=== PATIENT | male | born 1950 | race Caucasian/White ===

== ENCOUNTER 2016-04-18 12:59 | Emergency (ER) | payer MEDICARE, OTHER ==
[2016-04-18 13:38] VITALS: BP 157/54
[2016-04-18] MEDS ORDERED: DIPHTH,PERTUSS(ACELL),TET VAC 0.5 ML VIAL IM ONE ×2 (13:43→14:53)
--- NOTE | 2016-04-18 14:26 | ERNOTE ---
Upper Extremity HPI - General Extremities Pain Location: 2nd finger: left, 5th finger: left Time Seen by Provider: 04/18/16 14:00 Source: patient Exam Limitations: no limitations - Immun/Allergies/Home Medications Immunizations: IMMUNIZATION HX Immunizations Up to Date Yes Allergies/Adverse Reactions: Allergies Allergy/AdvReac Type Severity Reaction Status Date / Time poison lalitha extract Allergy Verified 04/18/16 13:38 [Poison Lalitha Extract] poison oak extract Allergy Verified 04/18/16 13:38 [Poison [place] Extract] poison sumac extract Allergy Verified 04/18/16 13:38 [Poison Sumac Extract] contrast dye AdvReac Mild Vomiting Uncoded 04/18/16 13:38 Home Medications: HOME MEDICATIONS Atorvastatin Calcium 40 mg PO HS 02/29/12 [Last Taken Unknown] Escitalopram Oxalate [Lexapro] 20 mg PO Q48H 02/29/12 [Last Taken Unknown] Flecainide Acetate 100 mg PO BID 02/29/12 [Last Taken Unknown] Timolol [Betimol] 1 drop EACHEYE DAILY 02/29/12 [Last Taken Unknown] Warfarin Sodium [Coumadin] 5 mg PO SUTUTHSA 02/29/12 [Last Taken 04/10/14 08:00] Losartan Potassium [Cozaar] 100 mg PO DAILY 05/14/13 [Last Taken Unknown] Warfarin Sodium [Coumadin] 7.5 mg PO MOWEFR 01/08/14 [Last Taken Unknown] Metoprolol Succinate [Toprol Xl] 50 mg PO BID 02/02/14 [Last Taken Unknown] Acetaminophen [Tylenol] 650 mg PO QID PRN #1 tablet 04/13/14 [Last Taken Unknown ] Diclofenac Sodium [Voltaren] 50 mg PO BID 08/22/14 [Last Taken Unknown] amLODIPine BESYLATE [Norvasc] 5 mg PO DAILY 09/05/14 [Last Taken Unknown] Cyanocobalamin [Vitamin B-12] 1,000 mcg PO DAILY 12/10/15 [Last Taken Unknown] Multivitamins [Multivitamin Fawn] 1 cap PO DAILY 12/10/15 [Last Taken Unknown] Omeprazole [Prilosec] 40 mg PO DAILY 12/10/15 [Last Taken Unknown] Amox Tr/Potassium Clavulanate [Augmentin 875-125 Tablet] 875 mg PO Q12H #20 tab 04/18/16 [Last Taken Unknown] Oxycodone HCl/Acetaminophen [Percocet 5-325 mg Tablet] 1 each PO Q4H PRN #30 tablet 04/18/16 [Last Taken Unknown] - History of Present Illness Narrative: Patient was working with a table saw and did not pay enough attention and injured his left 2nd and fifth finger tip Date (Duration): 04/18/16 Occurred: just prior to arrival Location of Incident: home Severity: moderate Method of Injury: Reports: other Loss of Consciousness: Reports: no loss of consciousness Associated Symptoms: Denies: tingling, weakness Other Injuries: Reports: none Review of Systems - Review of Systems Constitutional: Absent: recent illness, fever ENT: Absent: nose congestion, sore throat Respiratory: Absent: shortness of breath, cough Cardiology: Absent: chest pain Gastrointestinal/Abdominal: Absent: nausea, abdominal pain Musculoskeletal: Present: See HPI Skin: Present: See HPI Neurological: Absent: weakness, numbness - Patient's Past Medical History Patient History - Medical: Other Patient History - Cardiac/Respiratory: Atrial Fibrillation, Hypertension Patient History - Cancer: No Hx of Cancer Patient History - Surgical Procedures: No surgical history Patient History - Other: None - Social History Smoking Status: Never smoker Have you smoked in the past 12 months: No - Immunizations Immunizations Up to Date: No Physical Exam - Physical Exam General Appearance: Present: wd/wn, alert, no apparent distress Respiratory: Present: no respiratory distress Cardiovascular/Chest: Present: other - good cap refill Extremity Exam: Present: other - see procedure note, finger tip injuries of 2nd and fifth finger, 1cm laceration palmar surface on fourth finger over proximal phalanx Neurological Exam: Present: alert, oriented, normal mood/affect, no motor/ sensory deficits Skin Exam: Present: normal color, warm/dry ED Progress - Results and Orders Patient's Lab Results:: I have reviewed the patient's lab results. - Vital Signs Patient's Vital Signs:: I have reviewed the patient's vital signs. Vital Signs: Vital Signs 04/18/16 13:36 Temperature 36.5 C Pulse Rate 93 Respiratory 14 Rate Blood Pressure 157/54 O2 Sat by Pulse 91 Oximetry - X-Ray X-Ray #1 X-Ray: hand - comminuted and displaced fracture and laceration second distal phalanx, tuft fracture and laceration fifth distal phalanx Interpretation: Interp. by me - Progress/Reassessment Chief Complaint: Hand Injury/Pain Progress Note-Subjective: 04/18/16 14:[address] Begum (displaced fracture and laceration distal phalanx second finger with nail injury, open tuft fracture and nail injury fifth distal phalanx) instructed to dress fingertips, start patient on augmentin, he will repair wound in office tomorrow Procedures Left 2nd Digit Anesthesia: 1% Lidocaine, Digital Block Wound's Depth/Shape: into subcutaneous, into muscle, nail-avulsed, other - cut through fingertip, through bone and lower part of nail, still connected on radial side Wound Explored: no foreign body Wound Intervention: irrigated w/saline Distal NVT: neuro/vasc intact Wound Dressing: sterile dressing applied Left 5th Digit Anesthesia: 1% Lidocaine, Digital Block Wound's Depth/Shape: into subcutaneous, other - partial avulsion of distal finger tip Wound Explored: clean Wound Intervention: irrigated w/saline Distal NVT: neuro/vasc intact, no tendon injury Wound Dressing: sterile dressing applied Left 4th Digit Anesthesia: 1% Lidocaine, Local Wound's Depth/Shape: into subcutaneous Wound Explored: clean, to base, in bloodless field Wound Intervention: irrigated w/saline Distal NVT: neuro/vasc intact, no tendon injury Suture Size/Type: 4-0 Number of Sutures: 3 Layer Closure: Simple Wound Dressing: sterile dressing applied Departure Clinical Impression: Fracture of finger, distal, open Qualifiers: Encounter type: initial encounter Finger: index finger Fracture alignment: displaced Laterality: left Qualified Code(s): S62.631B - Displaced fracture of distal phalanx of left index finger, initial encounter for open fracture Fracture of finger, distal, open Qualifiers: Encounter type: initial encounter Finger: index finger Fracture alignment: displaced Laterality: left Qualified Code(s): S62.631B - Displaced fracture of distal phalanx of left index finger, initial encounter for open fracture Open fracture of tuft of distal phalanx of finger Qualifiers: Encounter type: initial encounter Qualified Code(s): S62.639B - Displaced fracture of distal phalanx of unspecified finger, initial encounter for open fracture Finger laceration Qualifiers: Encounter type: initial encounter Qualified Code(s): S61.219A - Laceration without foreign body of unspecified finger without damage to nail, initial encounter - Departure Disposition: Home self-care Condition: Good Instructions: Crush Injury of the Fingers or Toes Additional Instructions: call Dr Begum's office in the morning for an appointment time Dr Begum is planning on repairing your fingers tomorrow take your medication, antibiotics and pain medications as needed with a small amount of water, but do not eat or drink till you are seen by Dr Begum Referrals: Delta Ivy, PAC [[facility]] - Prescriptions: Amox Tr/Potassium Clavulanate [Augmentin 875-125 Tablet] 875 mg PO Q12H #20 tab Oxycodone HCl/Acetaminophen [Percocet 5-325 mg Tablet] 1 each PO Q4H PRN #30 tablet PRN Reason: Pain
[2016-04-18 14:40] LABS: Prothrombin Time (Patient) 32.7 Seconds (9.4-11.4)
[2016-04-18 14:43] LABS: INR 3.14 INR (0.90-1.10)
[2016-04-18] MEDS ORDERED: oxyCODONE HCL/ACETAMINOPHEN 1 TAB TABLET PO ONE (15:59)
[2016-04-18] MEDS ORDERED: AMOX TR/POTASSIUM CLAVULANATE 875 MG TABLET PO ONE (15:59)
[2016-04-18] MEDS ORDERED: AMOX TR/POTASSIUM CLAVULANATE 500 MG TABLET ONE (16:01)
[2016-04-18] MEDS ORDERED: oxyCODONE HCL/ACETAMINOPHEN 1 TAB TABLET ONE (16:01)
[2016-04-18] MEDS ORDERED: AMOX TR/POTASSIUM CLAVULANATE 875 MG TABLET ONE (16:02)
== END 2016-04-18 16:11 | disposition home or self-care (01) ==
LOC: ER 12:59
PROC: 0JQK0ZZ Repair Left Hand Subcutaneous Tissue and Fascia, Open Approach (ICD-10-PCS; principal; 2016-04-18)
DX: S62.631B Displaced fracture of distal phalanx of left index finger, initial encounter for open fracture (principal); S62.637B Displaced fracture of distal phalanx of left little finger, initial encounter for open fracture; S61.215A Laceration without foreign body of left ring finger without damage to nail, initial encounter; S61.317A Laceration without foreign body of left little finger with damage to nail, initial encounter; S61.211A Laceration without foreign body of left index finger without damage to nail, initial encounter; W27.0XXA Contact with workbench tool, initial encounter; Y92.009 Unspecified place in unspecified non-institutional (private) residence as the place of occurrence of the external cause; Z23 Encounter for immunization

== ENCOUNTER 2017-03-07 08:04 | Day surgery (SDC) | payer MEDICARE, OTHER ==
[~2017-03-07 08:04] MED LIST: RINGER'S SOLUTION,LACTATED 1,000 ML IV PRN
[2017-03-07 09:20] LABS: INR 1.17 INR (0.90-1.10); Prothrombin Time (Patient) 11.7 Seconds (9.0-11.0)
--- NOTE | 2017-03-07 10:40 | OR ---
Operative Report - Dictated Report Narrative: Date: 03/07/2017 Preop diagnosis: Screening colonoscopy Postop diagnosis: Normal colon Procedure: Total colonoscopy Staff surgeon: Pradip Hicks MD Anesthesia: MAC per SERVICE ADVISOR EBL: none Description: After informed consent and appropriate sedation the patient was placed in the left lateral decubitus position. A flexible fiberoptic video colonsocpe was introduced and advanced under direct vision without difficulty to the cecum. The usual landmarks were identified. Preparation was excellent and excellent views were obtained. The findings were of a normal cecum, ascending colon, hepatic flexure, transverse colon, splenic flexure, descending colon, sigmoid colon, and rectum. Retroflex view was normal. The mucosal color, vasculature and texture were normal throughout. Non suspicious masses were seen. The patient tolerated the procedure well without apparent complications and was discharged from the endoscpy suite in stable condition.
[2017-03-07 11:10] VITALS: BP 143/70
== END 2017-03-07 08:05 | disposition home or self-care (01) ==
LOC: AMB 08:04
PROVIDERS: ATTEND Specialist
PROC: 0DJD8ZZ Inspection of Lower Intestinal Tract, Via Natural or Artificial Opening Endoscopic (ICD-10-PCS; principal; 2017-03-07 09:00)
DX: Z12.11 Encounter for screening for malignant neoplasm of colon (principal); I10 Essential (primary) hypertension; I48.91 Unspecified atrial fibrillation; E78.5 Hyperlipidemia, unspecified; Z79.01 Long term (current) use of anticoagulants; Z80.0 Family history of malignant neoplasm of digestive organs; Z87.891 Personal history of nicotine dependence; Z68.41 Body mass index [BMI] 40.0-44.9, adult
CPT/HCPCS: 36415; 85610; G0105

== ENCOUNTER 2018-10-29 17:30 | Observation (INO) ==
[2018-10-29] MEDS ORDERED: DILTIAZEM HCL 5 MG/ML VIAL IV ONE (17:49)
--- NOTE | 2018-10-29 17:52 | ERNOTE ---
Dyspnea - Date Date of Service: 10/29/18 - General Time Seen by Provider: 10/29/18 17:48 Source: patient Exam Limitations: no limitations - Immun/Allergies/Home Medications Immunizations: IMMUNIZATION HX Immunizations Up to Date Yes Allergies/Adverse Reactions: Allergies poison lalitha extract [Poison Lalitha Extract] Allergy (Verified 10/29/18 17:46) poison oak extract [Poison [place] Extract] Allergy (Verified 10/29/18 17:46) poison sumac extract [Poison Sumac Extract] Allergy (Verified 10/29/18 17:46) contrast dye Adverse Reaction (Mild, Uncoded 10/29/18 17:46) Vomiting Home Medications: HOME MEDICATIONS Timolol [Betimol] 1 drp EACHEYE DAILY 02/29/12 [Last Taken Unknown] Cyanocobalamin [Vitamin B-12] 1,000 mcg PO DAILY 12/10/15 [Last Taken Unknown] Multivitamins [Multivitamin Fawn] 1 cap PO DAILY 12/10/15 [Last Taken Unknown] artificial saliva (yerba rivka and lytes) spray 4 spray MUCOUS MEMBRANE Q4H PRN #240 ml 06/25/18 [Last Taken Unknown] irbesartan 300 mg tablet 300 mg PO DAILY 06/25/18 [Last Taken Unknown] warfarin 1 mg tablet 1 mg PO QMWF tab 06/25/18 [Last Taken Unknown] warfarin 5 mg tablet See Rx Instructions PO DAILY tab 06/25/18 [Last Taken Unknown] atorvastatin 40 mg tablet 40 mg PO HS #30 tab 07/02/18 [Last Taken Unknown] folic acid 1 mg tablet 1 mg PO DAILY #30 tab 07/02/18 [Last Taken Unknown] hydrochlorothiazide 25 mg tablet 25 mg PO DAILY 07/30/18 [Last Taken Unknown] metoprolol tartrate 50 mg tablet 50 mg PO DAILY 07/30/18 [Last Taken Unknown] potassium chloride ER 20 mEq tablet,extended release 20 meq PO DAILY 07/30/18 [Last Taken Unknown] sildenafil 50 mg tablet 50 mg PO DAILY PRN #14 tab 07/30/18 [Last Taken Unknown] triamcinolone acetonide 0.1 % topical cream 1 applic TP QID 09/14/18 [Last Taken Unknown] amlodipine 5 mg tablet 5 mg PO DAILY #30 tab 10/05/18 [Last Taken Unknown] diclofenac sodium 50 mg tablet,delayed release 50 mg PO BID #60 tab 10/05/18 [Last Taken Unknown] Omeprazole 40 mg PO DAILY 10/29/18 [Last Taken Unknown] - History of Present Illness Narrative: patient presents to ed with c/o dyspnea, hemoptysis for about one week, noted in office to have rapid heart rate. known hx of a-fib Medical History (Updated 09/15/18 @ 13:03 by Simon Jensen MD) Sleep apnea (Chronic) Onset Date: ~08/31/12 Osteoarthritis (Chronic) Onset Date: ~06/04/14 Hyperlipidemia (Chronic) Glaucoma (Chronic) Essential hypertension (Chronic) Onset Date: ~03/04/13 Atrial fibrillation (Chronic) Onset Date: ~09/02/13 Arthritis Sex disorder Onset Date: ~01/10/17 Achilles tendinosis Onset Date: ~06/04/14 Onychomycosis Onset Date: ~04/05/13 Severe dehydration Onset Date: ~04/26/14 Surgical History: Surgical History (Updated 06/25/18 @ 14:37 by Emely Callejas) Fingertip amputation Onset Date: ~04/19/16 [place]-left index fingertip amputation and repair, left small figer debridement nail and repair performed in office H/O nasal septoplasty Onset Date: ~06/10/10 [place]-bilateral submucosal resection of the inferior turbinates. History of YAG laser capsulotomy of lens Onset Date: ~08/22/09 History of arthroscopic knee surgery Onset Date: ~03/31/05 Dr Ty 2001-left knee, 2004 right knee History of cardioversion Onset Date: ~07/09/09 History of cataract surgery Onset Date: ~02/06/07 01/09/2007 right; 1023/07 Left History of colonoscopy Onset Date: ~03/07/17 History of revision of total knee arthroplasty Onset Date: ~01/2014 left knee History of tonsillectomy History of total knee replacement Onset Date: ~12/01/05 11/24/05 right 12/01/05 History of wisdom tooth extraction nail removal Onset Date: ~08/23/16 [place]-in office excision nail regrowth left index fingertip Family History: Family History (Updated 06/25/18 @ 14:07 by Corrina Villegas LPN) Father Hypertension Mother Hypertension Social History: Preferred Language Pashto Smoking Status Never smoker Abuse History No History of abuse Psych History No pertinent hx Alcohol Use none Drug Use none (Last Reviewed 10/29/18 @ 14:24 by Noy Leon RN) No Social History Section defined Progress - Date and Time Seen: Date and Time: 10/29/18 18:47 patient improved. to start cadizem drip and admit to hospital, dr bautista accepts patient - Vital Signs Patient's Vital Signs:: I have reviewed the patient's vital signs. Vital Signs: Vital Signs 10/29/18 17:40 Pulse Rate 143 H Respiratory Rate 14 Blood Pressure 141/106 H O2 Sat by Pulse Oximetry 98 - Progress/Reassessment Chief Complaint: Dyspnea Progress:: Improved - Transfer of Care Expected Disposition: Admit Plan - Plan Plan: to admit Departure Clinical Impression: Atrial fibrillation with rapid ventricular response - Departure Disposition: Short Term Hospital Inpatient Condition: Fair Referrals: Zack Dumont MD [Primary Care Provider] -
[2018-10-29 18:17] LABS: BNP * 2312 pg/mL (5-350)
[2018-10-29 18:18] LABS: Troponin I Less than 0.017 ng/mL (0.00-0.10)
[2018-10-29] MEDS: DILTIAZEM HCL 125 MG in DEXTROSE 5 % IN WATER 100 ML IV PRN ×2 (18:57)
[2018-10-29] MEDS ORDERED: METOPROLOL TARTRATE 50 MG TABLET PO ONE (20:44)
[2018-10-29] MEDS ORDERED: IRBESARTAN 300 MG PO SCH (21:00)
[2018-10-29] MEDS ORDERED: ROSUVASTATIN CALCIUM 10 MG TABLET PO SCH (21:00)
--- NOTE | 2018-10-29 23:48 | HP ---
Chief Complaint - Chief Complaint Date of Service: 10/29/18 Time of Service: 23:41 Chief Complaint: Coughing up blood History of Present Illness: Stalin is a 68 yo male with chronic atrial fibrillation on coumadin. He reported a week of increased coughing and the presence of blood the last couple days. He denies chest pain or shortness of breath. He presented to the [facility] clinic today where he was evaluated with bloodwork, EKG, and Chest CT. EKG showed atrial fibrillation with RVR of 143, bloodwork showed elevated D-dimer, and Chest CT showed no pulmonary embolism but pulmonary congestion. He was sent to the ER for IV rate controlling medication and was started on IV diltiazem drip. He reports that about 4 months ago he stopped Flecainide from his hobber, Dr. Siu. He has not had any recent changes in medication, diet, or activity. He reports he does take metoprolol 50mg once a day. Medical History (Updated 10/29/18 @ 23:47 by Yovanny Meek DO) Sleep apnea (Chronic) Onset Date: ~08/31/12 Osteoarthritis (Chronic) Onset Date: ~06/04/14 Hyperlipidemia (Chronic) Glaucoma (Chronic) Essential hypertension (Chronic) Onset Date: ~03/04/13 Atrial fibrillation (Chronic) Onset Date: ~09/02/13 Arthritis Sex disorder Onset Date: ~01/10/17 Achilles tendinosis Onset Date: ~06/04/14 Onychomycosis Onset Date: ~04/05/13 Severe dehydration Onset Date: ~04/26/14 Surgical History: Surgical History (Updated 10/29/18 @ 23:47 by Yovanny Meek DO) Fingertip amputation Onset Date: ~04/19/16 [place]-left index fingertip amputation and repair, left small figer debridement nail and repair performed in office H/O nasal septoplasty Onset Date: ~06/10/10 [place]-bilateral submucosal resection of the inferior turbinates. History of YAG laser capsulotomy of lens Onset Date: ~08/22/09 History of arthroscopic knee surgery Onset Date: ~03/31/05 Dr Ty 2001-left knee, 2004 right knee History of cardioversion Onset Date: ~07/09/09 History of cataract surgery Onset Date: ~02/06/07 01/09/2007 right; Left History of colonoscopy Onset Date: ~03/07/17 History of revision of total knee arthroplasty Onset Date: ~01/2014 left knee History of tonsillectomy History of total knee replacement Onset Date: ~12/01/05 11/24/05 right 12/01/05 History of wisdom tooth extraction nail removal Onset Date: ~08/23/16 [place]-in office excision nail regrowth left index fingertip Family History: Family History (Updated 06/25/18 @ 14:07 by Corrina Villegas LPN) Father Hypertension Mother Hypertension Social History: Patient Lives/Resources With Spouse Utilized Preferred Language South African Do you have any buddhist or No cultural preference? Smoking Status Former smoker Have you smoked in the past 12 No months Abuse History No History of abuse Psych History No pertinent hx Alcohol Use none Drug Use none (Last Reviewed 10/29/18 @ 14:24 by Noy Leon RN) No Social History Section defined Review Of Systems (GEN) - Review of Systems Generalized/Overall Review: Absent: Weakness, Chills, Fever EENTM: Present: No Symptoms Reported Respiratory: Present: Cough, Other - hemoptysis. Absent: Shortness of Breath, Orthopnea Cardiac: Present: Edema, Palpitations. Absent: Chest Pain, Syncope Abdominal: Absent: Nausea, Vomiting, Abdominal Pain Genitourinary: Present: No Symptoms Reported Musculoskeletal: Present: No Symptoms Reported Neurological: Present: No Symptoms Reported Skin: Present: No Symptoms Reported Immunizations: IMMUNIZATION HX Immunizations Up to Date Yes Allergies/Adverse Reactions: Allergies Allergy/AdvReac Type Severity Reaction Status Date / Time poison lalitha extract Allergy Verified 10/29/18 17:46 [Poison Lalitha Extract] poison oak extract Allergy Verified 10/29/18 17:46 [Poison [place] Extract] poison sumac extract Allergy Verified 10/29/18 17:46 [Poison [place] Extract] contrast dye AdvReac Mild Vomiting Uncoded 10/29/18 17:46 Home Medications: HOME MEDICATIONS Timolol [Betimol] 1 drp EACHEYE DAILY 02/29/12 [Last Taken Unknown] Cyanocobalamin [Vitamin B-12] 1,000 mcg PO DAILY 12/10/15 [Last Taken Unknown] Multivitamins [Multivitamin Fawn] 1 cap PO DAILY 12/10/15 [Last Taken Unknown] artificial saliva (yerba rivka and lytes) spray 4 spray MUCOUS MEMBRANE Q4H PRN #240 ml 06/25/18 [Last Taken Unknown] irbesartan 300 mg tablet 300 mg PO DAILY 06/25/18 [Last Taken Unknown] warfarin 1 mg tablet 1 mg PO QMWF tab 06/25/18 [Last Taken Unknown] warfarin 5 mg tablet See Rx Instructions PO DAILY tab 06/25/18 [Last Taken Unknown] atorvastatin 40 mg tablet 40 mg PO HS #30 tab 07/02/18 [Last Taken Unknown] folic acid 1 mg tablet 1 mg PO DAILY #30 tab 07/02/18 [Last Taken Unknown] hydrochlorothiazide 25 mg tablet 25 mg PO DAILY 07/30/18 [Last Taken Unknown] metoprolol tartrate 50 mg tablet 50 mg PO DAILY 07/30/18 [Last Taken Unknown] potassium chloride ER 20 mEq tablet,extended release 20 meq PO DAILY 07/30/18 [Last Taken Unknown] sildenafil 50 mg tablet 50 mg PO DAILY PRN #14 tab 07/30/18 [Last Taken Unknown] triamcinolone acetonide 0.1 % topical cream 1 applic TP QID 09/14/18 [Last Taken Unknown] amlodipine 5 mg tablet 5 mg PO DAILY #30 tab 10/05/18 [Last Taken Unknown] diclofenac sodium 50 mg tablet,delayed release 50 mg PO BID #60 tab 10/05/18 [Last Taken Unknown] Omeprazole 40 mg PO DAILY 10/29/18 [Last Taken Unknown] Exam - Exam Vital Signs: Vital Signs - Last Taken Temp 36.9 C 10/29/18 21:06 Pulse 106 H 10/29/18 23:04 Resp 18 10/29/18 23:04 BP 116/86 10/29/18 23:04 Pulse Ox 93 10/29/18 23:04 Constitutional: Present: Alert, Oriented x3, Cooperative ENT Exam: Present: hearing grossly normal Eye Exam: bilateral eye: normal inspection Respiratory: Present: lungs clear, normal breath sounds, no respiratory distress Cardiovascular/Chest: Present: no murmur, tachycardia, irregularly irregular Peripheral Pulses: radial (R): 2+, radial (L): 2+ Abdomen: Present: Normal bowel sounds, soft, nontender, nondistended, no rebound tenderness Skin Exam: Present: normal color, warm/dry, no cyanosis Appearance: Present: appropriate appearance, appropriate insight Eye contact: Present: cooperative, good eye contact, normal speech Thoughts: Present: normal thought pattern, no apparent hallucination Diagnostic Studies: Abnormal Lab Results 10/29/18 Range/Units 16:25 B-Natriuretic Peptide 2312 H (5-350) pg/mL Laboratory Results PTT (Jacob) 30.1 Seconds (24-32) 10/29/18 16:25 Less than 0.017 ng/mL (0.00-0.10) 10/29/18 16:25 B-Natriuretic Peptide 2312 pg/mL (5-350) H 10/29/18 16:25 Assessment/Plan - Narrative Narrative: Stalin is a 68 yo male with atrial fibrillation with RVR. He has known chronic atrial fibrillation. He is anticoagulated on Coumadin, although INR is >3 and supratherapeutic. Will hold his current dose. He is rate uncontrolled. He was started on IV diltiazem drip in the ER and will be admitted to the SCU. Titrate diltiazem. Will give him a dose of his oral metoprolol and monitor rate on telemetry. May need to increase metoprolol for improved control on rate. No precipitating cause to this episode although it sounds like his heart rate tends to run on the tachycardic side and his only reason for presentation was the hemoptysis which is likely secondary to both increase pulmonary congestion which may be from uncontrolled atrial fibrillation plus the supratherapeutic INR. Will use IV medication get get rate controlled and then transition to oral medication control. - Assessment/Plan (1) Atrial fibrillation with rapid ventricular response Problem: Acute (2) ULICES on CPAP Problem: Chronic
[2018-10-30 05:33] LABS: Prothrombin Time (Patient) 31.8 Seconds (9.1-10.7)
[2018-10-30 05:36] LABS: INR 3.37 INR (0.92-1.08)
[2018-10-30 05:38] LABS: Albumin * 3.5 gm/dl (3.4-5.0); Anion Gap 13.2 mmol/L (6.8-13.8); BUN/Creatinine Ratio 21.4 (9.0-21.6); Ca. Corrected For Albumin 8.8 mg/dL (8.4-10.2); Calcium * 8.7 mg/dL (7.9-10.9); Carbon Dioxide 29.1 mmol/L (24-32.6); Potassium 3.3 mmol/L (3.4-4.6); Total Protein 6.2 gm/dL (6.2-8.2)
[2018-10-30] MEDS ORDERED: METOPROLOL TARTRATE 50 MG TABLET PO SCH (06:00)
[2018-10-30] MEDS ORDERED: OMEPRAZOLE 20 MG CAPSULE.SA PO SCH (07:00)
[2018-10-30] MEDS ORDERED: PANTOPRAZOLE SODIUM 40 MG TABLET.EC PO SCH (07:00)
[2018-10-30] MEDS: DILTIAZEM HCL 125 MG in DEXTROSE 5 % IN WATER 100 ML IV PRN ×2 (07:08)
[2018-10-30] MEDS ORDERED: METOPROLOL TARTRATE 50 MG TABLET PO ONE (08:58)
[2018-10-30] MEDS ORDERED: amLODIPine BESYLATE 5 MG TABLET PO SCH (09:00)
[2018-10-30] MEDS ORDERED: CYANOCOBALAMIN 1,000 MCG TABLET PO SCH (09:00)
[2018-10-30] MEDS ORDERED: POTASSIUM CHLORIDE 20 MEQ TABLET.SA PO SCH (09:00)
[2018-10-30] MEDS ORDERED: LOSARTAN POTASSIUM 50 MG TABLET PO SCH ×2 (09:00→21:00)
[2018-10-30] MEDS ORDERED: HYDROCHLOROTHIAZIDE 25 MG TABLET PO SCH (09:00)
[2018-10-30] MEDS ORDERED: MULTIVITAMINS 1 CAP CAPSULE PO SCH (09:00)
[2018-10-30] MEDS ORDERED: TIMOLOL MALEATE 50 DROP BTL EACHEYE SCH (09:00)
[2018-10-30] MEDS ORDERED: FOLIC ACID 1 MG TABLET PO SCH (09:00)
[2018-10-30] MEDS ORDERED: FUROSEMIDE 10 MG/ML VIAL IV ONE (12:25)
--- NOTE | 2018-10-30 14:27 | PN ---
Progess Note - Interim Date: 10/30/18 Time: 11:00 Narrative: 10/30/18 14:26 Patient seen and evaluated and has no complaints. Patient is resting comfortably in SCU with the IV Cardizem drip still going, currently at the lowest titration rate. Patient has been given oral amlodipine 5mg and metoprolol 100mg in preparation to wean off IV Cardizem Drip. Advised nurse Ricardo BLANCO, to attempt a trial off the IV Cardizem drip at noon for 1 hour, if patient heart rate returns greater than 110 to restart IV drip. Also discussed about evaluating pericardial effusion with echo, administering Lasix IV and ruling out aortic dissection with CT Aorta Angiogram. If patient responds well to being weaned off IV Cardizem drip and echo and CT aorta angiogram are not concerning, will most likely discharge patient today, and will complete remaining cardiac work-up outpatient. Will discharge patient with adjusted higher doses of metoprolol for better rate control. Patient will follow-up with me after discharge, and has an appointment with the hypo dipper later on this month, which we will reschedule for an earlier date. Discussed management with patient and voices understanding. 10/30/18 15:28
--- NOTE | 2018-10-30 16:56 | DS ---
(1) Atrial fibrillation with rapid ventricular response Problem: Acute (2) ULICES on CPAP Problem: Chronic Description of Stay: Stalin is a 68 yo male that was admitted for Chronic Atrial Fibrillation with RVR of 140-150's. He was initially placed on IV diltiazem drip and titrated to maximum dose. Heart rate improved to 120's but was still elevated. He was given Metoprolol tartrate 50mg PO and heart rate improved significantly. He is chronically on Metoprolol Succinate 50mg Daily. He had a chest CT due to elevated d-dimer that showed no evidence of PE, but did show pulmonary congestion. He was given IV lasix and diuresed well. He had a echocardiogram that is pending at this time. His metoprolol was increased to 100mg and his heart rate remained controlled in the 80s. His diltiazem drip was titrated off and his heart rate remained controlled. He is asymptomatic and feels able for home discharge. Will have him follow up with Dr. Dumont and Dr. Siu. He will increase his metoprolol succinate to 100mg Daily. Procedures Performed: none Results and Findings: Lab Pending Results 10/29/18 16:25: Troponin I Less than 0.017, B-Natriuretic Peptide 2312 H 10/29/18 16:25: PTT (Jacob) 30.1 10/30/18 05:15: PT 31.8 H, INR (Anticoag Therapy) 3.37 H 10/30/18 05:15: Sodium 143 H, Plasma Sodium 143 H, Potassium 3.3 L, Chloride 104, Carbon Dioxide 29.1, Anion Gap 13.2, BUN 21, Creatinine 0.98, Est GFR (Non- Af Amer) 80, BUN/Creatinine Ratio 21.4, Random Glucose 88, Calcium 8.7, Calcium Adj for Albumin 8.8, Total Bilirubin 2.0 H, AST 31, ALT 27, Alkaline Phosphatase 67, Total Protein 6.2, Albumin 3.5 Discharge Location: Home Disposition: Home self-care Condition: Good Discharge Activity: Activity as tolerated Discharge Diet: Low salt Referrals: Zack Dumont MD [Primary Care Provider] - One Week Checo Siu MD [Associate] - (Next available) Problem Oriented Discharge Instructions to Patient/Family: Atrial Fibrillation, [id number] Additional Patient Instructions (free text): -Please make TCM appointment unless senior living discharge, or if following up with outside provider. Thank you! Noy @ [phone] or Martita at [phone]. Resume prior Coumadin dosing tomorrow (10/31/18) and recheck INR in 1 week Prescriptions (Any new or edited meds): Metoprolol Succinate [Toprol Xl] 100 mg PO DAILY #30 tab.er.24h Complete Home Medications List: Complete Home Medication List: Timolol [Betimol] 1 drp EACHEYE DAILY 02/29/12 Cyanocobalamin [Vitamin B-12] 1,000 mcg PO DAILY 12/10/15 Multivitamins [Multivitamin Fawn] 1 cap PO DAILY 12/10/15 artificial saliva (yerba rivka and lytes) spray 4 spray MUCOUS MEMBRANE Q4H PRN #240 ml 06/25/18 irbesartan 300 mg tablet 300 mg PO BID 06/25/18 warfarin 1 mg tablet 1 mg PO QMWF tab 06/25/18 warfarin 5 mg tablet See Rx Instructions PO DAILY tab 06/25/18 atorvastatin 40 mg tablet 40 mg PO HS #30 tab 07/02/18 folic acid 1 mg tablet 1 mg PO DAILY #30 tab 07/02/18 hydrochlorothiazide 25 mg tablet 25 mg PO DAILY 07/30/18 potassium chloride ER 20 mEq tablet,extended release 20 meq PO DAILY 07/30/18 sildenafil 50 mg tablet 50 mg PO DAILY PRN #14 tab 07/30/18 triamcinolone acetonide 0.1 % topical cream 1 applic TP QID 09/14/18 amlodipine 5 mg tablet 5 mg PO DAILY #30 tab 10/05/18 diclofenac sodium 50 mg tablet,delayed release 50 mg PO BID #60 tab 10/05/18 Omeprazole 40 mg PO DAILY 10/29/18 Metoprolol Succinate [Toprol Xl] 100 mg PO DAILY #30 tab.er.24h 10/30/18
[2018-10-30 17:08] VITALS: BP 146/89
[2018-10-30] MEDS ORDERED: ROSUVASTATIN CALCIUM 20 MG TABLET PO SCH (21:00)
--- NOTE | 2018-10-31 08:57 | ECHO ---
This report is available in the EMR
== END 2018-10-30 17:48 | disposition home or self-care (01) | DRG 310 ==
LOC: SCU 17:30 → ER 17:30 → SCU 19:13
PROVIDERS: ADMIT Family Medicine; ATTEND Family Medicine
CPT/HCPCS: 36415; 80053; 83519; 83880; 84484; 85610; 85730; 87040; 93005; 93306; 94660; 94760; 96365; 96366; 96374; 96375; 99283; G0378